=== PATIENT | male | born 1950 | race African-American/Black ===

== ENCOUNTER 2020-04-20 14:21 | Emergency (ER) | payer MEDICARE, MEDICAID ==
[~2020-04-20] VITALS: Ht 180.3 cm; Wt 99.7 kg
[~2020-04-20 14:21] MED LIST: ISENTRESS; LIPITOR; METFORMIN; TRUVADA; [UNRECOGNIZED DRUG - OTHER]
[2020-04-20] MEDS ORDERED: KETOROLAC 60MG/2ML VIAL IM ONE (15:15)
[2020-04-20 16:45] VITALS: BP 158/93
== END 2020-04-20 17:00 | disposition home or self-care (01) ==
LOC: ER 14:38
DX: M25.561 Pain in right knee (principal); E11.9 Type 2 diabetes mellitus without complications; Z98.890 Other specified postprocedural states
CPT/HCPCS: 73560; 73590; 96372; 99284; J1885